=== PATIENT | male | born 1985 | race Caucasian/White ===

== ENCOUNTER 2019-06-17 21:08 | Emergency (ER) | payer BC, OTHER ==
[2019-06-17] MEDS ORDERED: Codeine/guaiFENesin 100mg-10 MG/5 ML Soln 118 ML Bottle PO ONE (21:09)
[2019-06-17] MEDS ORDERED: Doxycycline 100 MG Tab PO ONE (21:09)
[2019-06-17] MEDS ORDERED: Albuterol 8 GM Inhaler INH ONE (21:09)
--- NOTE | 2019-06-17 21:31 | EDM.PDOC ---
ED HPI GENERAL MEDICAL PROBLEM - General Stated Complaint: fever Time Seen by Provider: 06/17/19 21:28 Source of Information: Reports: Patient History Limitations: Reports: No Limitations - History of Present Illness INITIAL COMMENTS - FREE TEXT/NARRATIVE: Jak is a 33 yo male with a cough x 1 month. Was seen in the [facility],given Zpak with no relief then. The last 2 days have been worse,with chest and upper back pain , but with no fever. No contacts or travel as related to COVID-19.Jak smokes about 1 packet of cigarettes per week,does not endorse vaping. - Related Data Allergies Allergy/AdvReac Type Severity Reaction Status Date / Time No Known Allergies Allergy Verified 06/17/19 22:44 Home Meds: Home Meds Escitalopram Oxalate 20 mg PO DAILY 06/17/19 [History] Multivitamin [Daily Multiple Vitamin] 1 each PO DAILY 06/17/19 [History] Omeprazole Magnesium [Prilosec Otc] 20 mg PO DAILY 06/17/19 [History] ED ROS GENERAL - Review of Systems Review Of Systems: Comprehensive ROS is negative, except as noted in HPI. ED EXAM, GENERAL - Physical Exam Exam: See Below Exam Limited By: No Limitations General Appearance: Alert, WD/WN Ears: Normal External Exam Nose: Normal Inspection Throat/Mouth: Normal Inspection Head: Atraumatic Neck: Normal Inspection Respiratory/Chest: Lungs Clear Course - Vital Signs Last Recorded V/S: Last Vital Signs Temp 97.8 F 06/17/19 21:15 Pulse 83 06/17/19 21:15 Resp 20 06/17/19 21:15 BP 137/85 06/17/19 21:15 Pulse Ox 95 06/17/19 21:15 Departure - Departure Time of Disposition: 21:30 Disposition: Home, Self-Care 01 Clinical Impression: Bronchitis - Discharge Information Instructions: Doxycycline tablets or capsules, Codeine; Guaifenesin oral solution or syrup, Albuterol; Ipratropium inhalation aerosol, Acute Bronchitis, Adult Referrals: Adolph Herr MD [Primary Care Provider] - Forms: ED Return to Work/School Form Care Plan Goals: Rest, drink plenty of fluids. Follow up as needed. Sepsis Event Note - Focused Exam Date Exam was Performed: 06/18/19 Time Exam was Performed: 19:19 - Problem List & Annotations (1) Bronchitis SNOMED Code(s): 60637207 Code(s): J40 - BRONCHITIS, NOT SPECIFIED ACUTE OR CHRONIC Status: Acute - Problem List Review Problem List Initiated/Reviewed/Updated: Yes - Assessment/Plan Plan: Doxycycline,Robitussin AC and Pro Air prn
== END 2019-06-17 21:50 | disposition home or self-care (01) ==
LOC: FB.ED 21:08
DX: J40 Bronchitis, not specified as acute or chronic (principal); F17.210 Nicotine dependence, cigarettes, uncomplicated
CPT/HCPCS: 99283; A9270

== ENCOUNTER 2021-04-05 01:39 | Emergency (ER) | payer BC, OTHER ==
[2021-04-05] MEDS ORDERED: Ondansetron 4 MG/2 ML SDV IVPUSH ONE (02:03)
[2021-04-05] MEDS ORDERED: Lactated Ringers 1,000 ML IV ONE (02:03)
[2021-04-05] MEDS ORDERED: Sodium Chloride 0.9% 10 ML Syringe FLUSH PRN (02:34)
[2021-04-05] MEDS ORDERED: Loperamide 2 MG Cap PO ONE (02:53)
== END 2021-04-05 03:18 | disposition home or self-care (01) ==
LOC: FB.ED 01:39
DX: K52.9 Noninfective gastroenteritis and colitis, unspecified (principal); E86.0 Dehydration; E66.9 Obesity, unspecified; Z68.34 Body mass index [BMI] 34.0-34.9, adult; Z72.0 Tobacco use; Z79.899 Other long term (current) drug therapy
CPT/HCPCS: 36415; 80053; 85025; 96374; 99284-25; A9270-GY; J2405; J7120

== ENCOUNTER 2024-10-16 07:38 | Day surgery (SDC) | payer BC, OTHER ==
[2024-10-16] MEDS ORDERED: Midazolam 1 MG/ML 2 ML SDV IV ONE (07:39)
[2024-10-16] MEDS ORDERED: Ketamine 500 mg/10 ML MDV IV ONE (07:39)
[2024-10-16] MEDS ORDERED: Propofol 200 MG/20 ML SDV IV ONE (07:39)
[2024-10-16] MEDS ORDERED: Sodium Chloride 0.9% 10 ML Syringe FLUSH PRN (07:45)
[2024-10-16] MEDS: Lactated Ringers 1,000 ML IV SCH (08:12)
== END 2024-10-16 11:00 | disposition home or self-care (01) ==
LOC: FB.SDS 07:38
PROVIDERS: ATTEND Surgery
DX: K62.5 Hemorrhage of anus and rectum (principal); R19.4 Change in bowel habit; E66.01 Morbid (severe) obesity due to excess calories; F17.210 Nicotine dependence, cigarettes, uncomplicated; Z68.39 Body mass index [BMI] 39.0-39.9, adult; Z79.899 Other long term (current) drug therapy
CPT/HCPCS: 45378; A9270; J2250; J2704; J3490; J7120; 00811